=== PATIENT | female | born 1975 | race Caucasian/White ===

== ENCOUNTER 2020-03-31 06:00 | Inpatient (IN) ==
[2020-03-31] MEDS ORDERED: Ketorolac 15 MG/ML VIAL IVP ONE (06:55)
[2020-03-31] MEDS ORDERED: Ringers Solution, Lactated 1,000 ML IVC SCH ×2 (07:00→11:30)
[2020-03-31] MEDS ORDERED: MetroNIDAZOLE 500 MG/100 ML 500 MG/100 ML BAG IVPB ONE (07:02)
[2020-03-31] MEDS ORDERED: CeFAZolin Syr 2,000MG/20 ML 2,000 MG/20 ML SYRINGE IVPB ONE (07:02)
[2020-03-31] MEDS ORDERED: *HR* Midazolam HCl 2 MG/2 ML VIAL ONE (07:11)
[2020-03-31] MEDS ORDERED: *HR* FentaNYL (PF) 100 MCG/2 ML VIAL ONE (07:11)
[2020-03-31] MEDS ORDERED: *HR* Propofol 200 MG/20 ML VIAL IVP ONE (07:12)
[2020-03-31] MEDS ORDERED: *HR* Belladonna Alkaloids/Opium 30 MG RECTAL SUPPOSITORY RC ONE (07:28)
[2020-03-31] MEDS ORDERED: *HR* OxyCODONE Immed Rel 5 MG TABLET PO PRN (07:29)
[2020-03-31] MEDS ORDERED: Ondansetron 4 MG/2 ML VIAL IVP ONE (07:29)
[2020-03-31] MEDS ORDERED: *HR* HYDROmorphone PF 0.5 MG/0.5 ML SYRINGE IVP PRN (07:29)
[2020-03-31] MEDS ORDERED: *HR* HYDROMORPHONE 2 MG/ML VIAL ONE (08:23)
[2020-03-31] MEDS ORDERED: Bupivacaine-MPF 0.25% 10 ML VIAL ONE (09:45)
[2020-03-31] MEDS ORDERED: Ropivacaine/PF 0.5% 30 ML VIAL ONE (09:45)
[2020-03-31] MEDS ORDERED: Neostigmine Methylsulfate 3 MG/3 ML SYRINGE ONE (09:48)
[2020-03-31] MEDS ORDERED: Ketorolac 30 MG/ML VIAL ONE (10:03)
[2020-03-31] MEDS ORDERED: Ondansetron 4 MG/2 ML VIAL IVP PRN (11:30)
[2020-03-31] MEDS ORDERED: Naloxone 0.4 MG/ML INJ IVP PRN (11:30)
[2020-03-31] MEDS ORDERED: *HR* OxyCODONE/APAP 5/325 TABLET PO PRN (11:30)
[2020-03-31] MEDS: Ketorolac 30 MG/ML VIAL IVP SCH ×2 (15:43→21:22)
[2020-03-31] MEDS ORDERED: Acetaminophen 325 MG TABLET PO PRN (19:54)
[2020-04-01] MEDS: Ketorolac 30 MG/ML VIAL IVP SCH (04:03)
[2020-04-01 05:35] LABS: Basophils % 0.1 %; Hemoglobin 10.6 g/dL (11.5-15.4); Immature Granulocytes % 0.3 % (0-4); Lymphocytes # 1.3 K/mcL (0.6-4.6); Lymphocytes % 14.2 %; Mean Corpuscular HGB Conc 33.1 g/dL (31.6-35.5); Mean Corpuscular Hemoglobin 28.6 pg (28.0-33.3); Mean Corpuscular Volume 86.3 fL (83.0-100.0); Mean Platelet Volume 10.3 fL (9.4-12.4); Monocytes # 0.8 K/mcL (0.0-1.3); Monocytes % 8.1 %; Neutrophils # 7.3 K/mcL (1.6-8.9); Platelet Count 216 K/mcL (140-400); Red Blood Count 3.71 M/mcL (3.82-4.97); Red Cell Distribution Width 13.2 % (11.5-14.5); Segmented Neutrophils % 77.3 %; White Blood Count 9.5 K/mcL (4.3-11.1)
[2020-04-01] MEDS ORDERED: Ibuprofen 600 MG TABLET PO SCH (06:00)
[2020-04-01 08:35] VITALS: BP 104/61
== END 2020-04-01 11:09 | disposition home or self-care (01) | DRG 743 ==
LOC: SAMDAY 06:00 → 1NENUOBS 11:29
PROVIDERS: ADMIT Obstetrics & Gynecology; ATTEND Obstetrics & Gynecology